=== PATIENT | male | born 1945 | race African-American/Black ===

== ENCOUNTER 2017-07-14 14:04 | Emergency (ER) | payer OTHER, SELFPAY ==
[2017-07-14 15:05] LABS: ALT (SGPT) 37 U/L (8-55); AST (SGOT) 58 U/L (5-34); Albumin 3.4 g/dL (3.4-4.8); Alkaline Phosphatase 52 U/L (40-150); Anion Gap 14 mmol/L (10-20); BUN (Urea Nitrogen) 26 mg/dL (8.4-25.7); Bilirubin, Total 0.2 mg/dL (0.2-1.2); Calc. Creatinine Clearance 0 mL/min (70-130); Carbon Dioxide 27 mmol/L (23-31); Chloride 97 mmol/L (98-107); Estimated GFR-MDRD 64; Globulin 3.6 g/dL (2.4-3.5); Glucose 73 mg/dL (83-110); Potassium 3.3 mmol/L (3.5-5.1); Sodium 135 mmol/L (136-145)
[2017-07-14] MEDS ORDERED: Potassium Chloride 20 MEQ TAB ONE (15:20)
[2017-07-14] MEDS ORDERED: Acetaminophen 500 MG TAB ONE (15:20)
[2017-07-14] MEDS ORDERED: Ibuprofen 800 MG TAB ONE (15:20)
[2017-07-14 15:24] LABS: #Basophils 0.1 thou/uL (0.0-0.2); #Lymphocytes 1.3 thou/uL (1.20-3.40); #Monocytes 0.4 thou/uL (0.11-0.59); #Neutrophils 1.4 thou/uL (1.40-6.50); %Basophils 1.9 % (0.0-1.0); %Eosinophils 0.1 % (0.0-10.0); %Lymphocytes 42.7 % (21.0-51.0); %Monocytes 11.8 % (0.0-10.0); %Neutrophils 43.5 % (42.0-75.0); Differential Comment SCANNED; Hemoglobin 13.2 g/dL (14.0-18.0); Hypochromia SLIGHT = 6-15 cells (100X) (0-5/hpf); MDiff Complete? YES; Mean Corpuscular HGB CONC 29.4 g/dL (32.0-36.0); Mean Corpuscular Hemoglobin 20.9 pg (27.0-31.0); Mean Corpuscular Volume 71.2 fl (80.0-94.0); Mean Platelet Volume 9.4 fL (7.4-10.4); Microcytosis MODERATE=15-30 cells (100X) (0-5/hpf); Platelet Count 156 thou/uL (130-400); RBC Distribution Width 14.4 % (11.5-14.5); Red Blood Cell (RBC) Count 6.32 mill/uL (4.70-6.10); White Blood Cell (WBC) Count 3.1 thou/uL (4.8-10.8)
== END 2017-07-14 15:22 | disposition home or self-care (01) ==
LOC: NAV ERS 14:04
DX: J11.1 Influenza due to unidentified influenza virus with other respiratory manifestations (principal); E11.649 Type 2 diabetes mellitus with hypoglycemia without coma; E87.6 Hypokalemia; I10 Essential (primary) hypertension; F17.210 Nicotine dependence, cigarettes, uncomplicated; Z79.4 Long term (current) use of insulin; Z79.899 Other long term (current) drug therapy
CPT/HCPCS: 80053; 85025; 87804; 99283

== ENCOUNTER 2018-01-03 22:07 | Emergency (ER) | payer OTHER, SELFPAY ==
[2018-01-03] MEDS ORDERED: Sodium Chloride 0.9% 1,000 ML ONE (22:17)
[2018-01-03] MEDS ORDERED: Dextrose 50% Abboject 50 ML SYRINGE ONE (22:17)
[2018-01-03 22:49] LABS: #Basophils 0.1 thou/uL (0.0-0.2); #Eosinphils 0.2 thou/uL (0.0-0.7); #Lymphocytes 3.6 thou/uL (1.20-3.40); #Monocytes 0.6 thou/uL (0.11-0.59); #Neutrophils 5.1 thou/uL (1.40-6.50); %Basophils 0.8 % (0.0-1.0); %Eosinophils 2.3 % (0.0-10.0); %Lymphocytes 37.7 % (21.0-51.0); %Monocytes 6.6 % (0.0-10.0); %Neutrophils 52.6 % (42.0-75.0); Hemoglobin 13.3 g/dL (14.0-18.0); Hypochromia MODERATE=16-30 cells (100X) (0-5/hpf); MDiff Complete? YES; Mean Corpuscular HGB CONC 29.8 g/dL (32.0-36.0); Mean Corpuscular Hemoglobin 21.4 pg (27.0-31.0); Mean Corpuscular Volume 71.7 fL (78.0-98.0); Mean Platelet Volume 8.7 fL (7.4-10.4); Microcytosis MODERATE=15-30 cells (100X) (0-5/hpf); PLT Morphology Comment Appears Adequate; Platelet Count 229 thou/uL (130-400); RBC Distribution Width 14.7 % (11.5-14.5); Red Blood Cell (RBC) Count 6.21 mill/uL (4.70-6.10); White Blood Cell (WBC) Count 9.6 thou/uL (4.8-10.8)
[2018-01-03 22:58] LABS: ALT (SGPT) 16 U/L (8-55); AST (SGOT) 21 U/L (5-34); Alkaline Phosphatase 54 U/L (40-150); Anion Gap 17 mmol/L (10-20); BUN (Urea Nitrogen) 30 mg/dL (8.4-25.7); Bilirubin, Total 0.2 mg/dL (0.2-1.2); Calc. Creatinine Clearance 0 mL/min (70-130); Calcium 10.1 mg/dL (7.8-10.44); Carbon Dioxide 25 mmol/L (23-31); Chloride 104 mmol/L (98-107); Estimated GFR-MDRD 68; Globulin 3.7 g/dL (2.4-3.5); Protein, Total 7.7 g/dL (5.8-8.1); Sodium 143 mmol/L (136-145)
[2018-01-03 23:14] LABS: Glucose 32 mg/dL (83-110); Potassium 2.9 mmol/L (3.5-5.1)
[2018-01-03] MEDS ORDERED: Potassium Chloride 20 MEQ TAB ONE (23:15)
[2018-01-04] MEDS ORDERED: Dextrose 10% in Water 1,000 ML ONE (01:23)
== END 2018-01-04 05:20 | disposition home or self-care (01) ==
LOC: NAV ERS 22:07
DX: E11.649 Type 2 diabetes mellitus with hypoglycemia without coma (principal); I10 Essential (primary) hypertension; F17.210 Nicotine dependence, cigarettes, uncomplicated; Z79.4 Long term (current) use of insulin; Z79.899 Other long term (current) drug therapy
CPT/HCPCS: 36416; 80053; 85025; 96361; 96365; 96366; 96375; 36415-59; J7050

== ENCOUNTER 2022-04-01 09:05 | Emergency (ER) | payer OTHER, SELFPAY ==
[2022-04-01] MEDS ORDERED: Aspirin Chewable 81 MG TAB ONE (09:46)
[2022-04-01] MEDS ORDERED: Hydrochlorothiazide 25 MG TAB ONE (10:02)
[2022-04-01] MEDS ORDERED: Furosemide 20 MG/2 ML VIAL ONE (10:02)
[2022-04-01] MEDS ORDERED: Lisinopril 10 MG TAB ONE (10:02)
[2022-04-01] MEDS ORDERED: Amiodarone 150 MG/3 ML VIAL ONE ×2 (10:11→10:49)
[2022-04-01 10:29] LABS: ALT (SGPT) 64 U/L (8-55); AST (SGOT) 33 U/L (5-34); Albumin 3.9 g/dL (3.4-4.8); Alkaline Phosphatase 69 U/L (40-110); Anion Gap 20 mmol/L (10-20); BUN (Urea Nitrogen) 13 mg/dL (8.4-25.7); Bilirubin, Total 0.5 mg/dL (0.2-1.2); Calc. Creatinine Clearance 0 mL/min (70-130); Carbon Dioxide 19 mmol/L (23-31); Chloride 107 mmol/L (98-107); Estimated GFR 83; Globulin 4.1 g/dL (2.4-3.5); Glucose 147 mg/dL (83-110); Potassium 4.2 mmol/L (3.5-5.1); Sodium 142 mmol/L (136-145)
[2022-04-01 10:39] LABS: #Basophils 0.1 thou/uL (0.0-0.2); #Eosinphils 0.2 thou/uL (0.0-0.7); #Lymphocytes 1.6 thou/uL (1.20-3.40); #Monocytes 0.4 thou/uL (0.11-0.59); #Neutrophils 4.9 thou/uL (1.40-6.50); %Basophils 1.2 % (0.0-1.0); %Eosinophils 2.7 % (0.0-10.0); %Lymphocytes 22.5 % (21.0-51.0); %Monocytes 5.8 % (0.0-10.0); %Neutrophils 67.9 % (42.0-75.0); Hemoglobin 13.3 g/dL (14.0-18.0); Mean Corpuscular HGB CONC 29.6 g/dL (32.0-36.0); Mean Corpuscular Hemoglobin 22.7 pg (27.0-31.0); Mean Corpuscular Volume 76.6 fL (78.0-98.0); Mean Platelet Volume 8.7 fL (7.4-10.4); Platelet Count 237 thou/uL (130-400); RBC Distribution Width 14.2 % (11.5-14.5); Red Blood Cell (RBC) Count 5.85 mill/uL (4.70-6.10); White Blood Cell (WBC) Count 7.2 thou/uL (4.8-10.8)
[2022-04-01] MEDS ORDERED: Enoxaparin Sodium 80 MG/0.8 ML SYRINGE ONE (10:49)
[2022-04-01] MEDS ORDERED: Metoprolol Tartrate 5 MG/5 ML VIAL ONE (11:29)
[2022-04-01 12:05] LABS: SARS-CoV-2 NAA Rapid Test Not Detected (NotDetected)
[2022-04-01 13:28] LABS: Lactic Acid 2.3 mmol/L (0.5-2.2)
[2022-04-01 15:09] LABS: Bilirubin Negative (Negative); Blood, Urine Negative (Negative); Clarity Clear (Clear); Glucose, Urine (Dipstick) 100 mg/dL (Negative); Ketone, Urine Negative (Negative); Leukocyte Negative (Negative); Nitrite Negative (Negative); Protein, Urine (Dipstick) Negative (Neg-Trace); Urobilinogen 0.2 mg/dL (Less than 2)
[2022-04-01 15:10] LABS: Specific Gravity, Urine 1.005 (1.002-1.036)
== END 2022-04-01 15:05 | disposition short-term general hospital (02) ==
LOC: NAV ERS 09:05
DX: I47.1 Supraventricular tachycardia (principal); E11.9 Type 2 diabetes mellitus without complications; I10 Essential (primary) hypertension; F17.210 Nicotine dependence, cigarettes, uncomplicated; Z79.4 Long term (current) use of insulin; Z79.899 Other long term (current) drug therapy
CPT/HCPCS: 36415; 36416; 71045; 71275; 80053; 81003; 82553; 83605; 83880; 84443; 84484; 85025; 85379; 87040; 93005; 94760; 96372; 96374; 96375; 96376; J0282; J1650; J1940; U0002